=== PATIENT | male | born 1955 | race Caucasian/White ===

== ENCOUNTER 2018-05-02 17:49 | Inpatient (IN) | payer MEDICARE, OTHER ==
[~2018-05-02] VITALS: Ht 170.2 cm; Wt 52.2 kg
[2018-05-02] MEDS ORDERED: DOCU-141 PO (18:02)
[2018-05-02] MEDS ORDERED: HYDR-3641 PO (18:02)
[2018-05-02] MEDS ORDERED: FOLI1TAB16 PO (18:02)
[2018-05-02] MEDS ORDERED: MAGN400T6 PO (18:02)
[2018-05-02] MEDS ORDERED: ACET-2154 PO (18:02)
[2018-05-02] MEDS ORDERED: BISA10SU12 RC (18:02)
[2018-05-02] MEDS ORDERED: SENN-167 PO (18:02)
[2018-05-02] MEDS ORDERED: MAGN400O6 PO (18:02)
[2018-05-02] MEDS ORDERED: THIA100T13 PO (18:05)
[2018-05-02] MEDS ORDERED: MULT-213 PO (18:05)
[2018-05-02] MEDS ORDERED: CYAN100T3 PO (18:05)
[2018-05-02] MEDS ORDERED: MELA5TAB PO (18:05)
[2018-05-02 18:14] LABS: BASOPHILS # (AUTO) 0.1 K/uL (0.0-8.0); BASOPHILS % (AUTO) 0.5 % (0.0-2.0); EOSINOPHILS # (AUTO) 0.2 K/uL (0.0-0.7); EOSINOPHILS % (AUTO) 1.7 % (0.0-7.0); HEMATOCRIT 36.4 % (36.7-47.1); HEMOGLOBIN 12.5 g/dL (12.5-16.3); LYMPHOCYTES # (AUTO) 1.8 K/uL (20.0-40.0); LYMPHOCYTES % (AUTO) 18.5 % (20.5-51.5); MEAN CORPUSCULAR HEMOGLOBIN 30.6 uug (23.8-33.4); MEAN CORPUSCULAR HGB CONC 34 g/dL (32.5-36.3); MEAN CORPUSCULAR VOLUME 89.1 fL (73.0-96.2); MONOCYTES # (AUTO) 1.1 K/uL (2.0-10.0); NEUTROPHILS # (AUTO) 6.6 K/uL (1.8-8.9); NEUTROPHILS % (AUTO) 68.3 % (38.5-71.5); PLATELET COUNT (AUTO) 646 K/uL (152-348); RED BLOOD CELL COUNT(AUTO) 4.09 MIL/uL (4.06-5.63); WHITE BLOOD COUNT (AUTO) 9.7 K/uL (3.6-10.2)
[2018-05-02 18:25] LABS: CARBON DIOXIDE 28 mmol/L (21-32); CHLORIDE 92 mmol/L (98-107); CREATININE 0.5 mg/dL (0.6-1.3); GLUCOSE 101 mg/dL (74-106); POTASSIUM 3.9 mmol/L (3.5-5.1); UREA NITROGEN, BLOOD 9 mg/dL (7-18)
[2018-05-02 18:33] LABS: ETHANOL < 3 MG/DL (0-0)
[2018-05-02 18:37] LABS: ACETAMINOPHEN < 2.0 ug/mL (10-30); ALANINE AMINOTRANSFERASE 17 U/L (16-63); ALKALINE PHOSPHATASE 100 U/L (50-136); ASPARTATE AMINOTRANSFERASE 16 U/L (15-37); BILIRUBIN,DIRECT 0.1 mg/dL (0.0-0.2); BILIRUBIN,TOTAL 0.3 mg/dL (0.2-1.0); TOTAL PROTEIN, SERUM 7.8 g/dL (6.4-8.2)
[2018-05-02 20:55] LABS: *BILIRUBIN,URIN NEGATIVE (NEGATIVE); *BLOOD, URINE NEGATIVE (NEGATIVE); *CLARITY,URINE CLEAR (CLEAR); *COLOR,URINE YELLOW (YELLOW); *KETONES,URINE NEGATIVE (NEGATIVE); *PROTEIN,URINE NEGATIVE (NEGATIVE); *UROBILINOGEN,URINE 0.2 E.U./dl (NORMAL); LEUKOCYTE ESTERASE ,URINE NEGATIVE (NEGATIVE); NITRITE, URINE NEGATIVE (NEGATIVE); UGLUCOSE NEGATIVE (NEGATIVE)
[2018-05-02 21:00] VITALS: BP 142/78
[2018-05-02 21:05] LABS: *AMPHETAMINE, URINE NEGATIVE (NEGATIVE); *BARBITURATE, URINE NEGATIVE (NEGATIVE); *CANNABINOID, URINE NEGATIVE (NEGATIVE); *COCCAINE, URINE NEGATIVE (NEGATIVE); *OPIATE, URINE NEGATIVE (NEGATIVE); *PHENCYCLIDINE SCREEN,URINE NEGATIVE (NEGATIVE)
[2018-05-02] MEDS ORDERED: IV NORMAL SALINE 1000 ML BAG IV ONE (21:15)
[2018-05-02 21:20] LABS: WBC,URINE 0-3 /HPF (0-3)
[2018-05-02] MEDS ORDERED: MAGNESIUM HYDROXIDE 30 ML LIQUID UDC PO PRN ×2 (21:30→21:45)
[2018-05-02] MEDS ORDERED: HYDROCODONE/APAP 5-325MG TABLET PO PRN (21:30)
[2018-05-02] MEDS ORDERED: ONDANSETRON 4 MG/2 ML VIAL IV PRN (21:30)
[2018-05-02] MEDS ORDERED: TEMAZEPAM 15 MG CAPSULE PO PRN (21:30)
[2018-05-02] MEDS ORDERED: Z GUARD REMEDY PASTE 57 GM TUBE TOP PRN (21:30)
[2018-05-02] MEDS ORDERED: BISACODYL 10 MG SUPP.RECT RC PRN (21:45)
[2018-05-02] MEDS ORDERED: ACETAMINOPHEN 325 MG TABLET PO PRN (21:45)
[2018-05-02] MEDS ORDERED: SENNOSIDES 1 TABLET PO PRN (21:45)
[2018-05-02] MEDS ORDERED: MAG HYDROX/AL HYDROX/SIMETH 30 ML LIQUID UDC PO PRN (22:00)
[2018-05-02] MEDS ORDERED: IV NS 1000 ML 1,000 ML IV ONE (22:30)
[2018-05-03] MEDS ORDERED: TEMAZEPAM 15 MG CAPSULE PO PRN (03:45)
[2018-05-03 06:45] LABS: BASOPHILS # (AUTO) 0.1 K/uL (0.0-8.0); BASOPHILS % (AUTO) 0.9 % (0.0-2.0); EOSINOPHILS # (AUTO) 0.3 K/uL (0.0-0.7); EOSINOPHILS % (AUTO) 3.3 % (0.0-7.0); HEMATOCRIT 36.3 % (36.7-47.1); HEMOGLOBIN 12.9 g/dL (12.5-16.3); LYMPHOCYTES # (AUTO) 1.6 K/uL (20.0-40.0); MEAN CORPUSCULAR HEMOGLOBIN 31.5 uug (23.8-33.4); MEAN CORPUSCULAR HGB CONC 36 g/dL (32.5-36.3); MEAN CORPUSCULAR VOLUME 88.7 fL (73.0-96.2); MONOCYTES # (AUTO) 1.2 K/uL (2.0-10.0); MONOCYTES % (AUTO) 13.3 % (0.0-11.0); NEUTROPHILS # (AUTO) 5.6 K/uL (1.8-8.9); NEUTROPHILS % (AUTO) 64.5 % (38.5-71.5); PLATELET COUNT (AUTO) 643 K/uL (152-348); WHITE BLOOD COUNT (AUTO) 8.7 K/uL (3.6-10.2)
[2018-05-03 07:01] LABS: CARBON DIOXIDE 25 mmol/L (21-32); CHLORIDE 96 mmol/L (98-107); CHOLESTEROL 147 mg/dL (<200); CREATININE 0.5 mg/dL (0.6-1.3); GLUCOSE 94 mg/dL (74-106); HDL CHOLESTEROL 46 mg/dL (40-60); MAGNESIUM 1.3 mg/dL (1.8-2.4); PHOSPHOROUS 3.4 mg/dL (2.5-4.9); POTASSIUM 3.8 mmol/L (3.5-5.1); TRIGLYCERIDES 40 MG/DL (30-150); UREA NITROGEN, BLOOD 6 mg/dL (7-18)
[2018-05-03 07:30] VITALS: BP 113/62
[2018-05-03] MEDS: MULTIVIT, IRON, MIN NO. 8, FA TABLET PO SCH (08:57)
[2018-05-03] MEDS: FOLIC ACID 1 MG TABLET PO SCH (08:57)
[2018-05-03] MEDS: DOCUSATE SODIUM 100 MG CAPSULE PO SCH ×2 (08:57→16:28)
[2018-05-03] MEDS: THIAMINE HCL 100 MG TABLET PO SCH (08:57)
[2018-05-03] MEDS: MAGNESIUM OXIDE 400 MG TABLET PO SCH (08:57)
[2018-05-03] MEDS: CYANOCOBALAMIN 100 MCG TABLET PO SCH (08:57)
[2018-05-03] MEDS: OLANZAPINE ZYDIS 5 MG TAB.RAPDIS PO SCH (13:15)
[2018-05-03] MEDS ORDERED: MAGNESIUM OXIDE 400 MG TABLET PO ONE (13:30)
[2018-05-03 16:09] VITALS: BP 101/58
[2018-05-03] MEDS ORDERED: Medication Not On Formulary EA (Melatonin 5 MG) PO SCH (21:00)
[2018-05-03] MEDS: MELATONIN 3 MG TABLET PO SCH (21:00)
[2018-05-03 22:01] VITALS: BP 110/60
[2018-05-04 07:30] VITALS: BP 103/53
[2018-05-04 07:32] LABS: CARBON DIOXIDE 25 mmol/L (21-32); CHLORIDE 102 mmol/L (98-107); CREATININE 0.5 mg/dL (0.6-1.3); GLUCOSE 91 mg/dL (74-106); MAGNESIUM 1.8 mg/dL (1.8-2.4); POTASSIUM 3.8 mmol/L (3.5-5.1); UREA NITROGEN, BLOOD 10 mg/dL (7-18)
[2018-05-04] MEDS: THIAMINE HCL 100 MG TABLET PO SCH (08:52)
[2018-05-04] MEDS: CYANOCOBALAMIN 100 MCG TABLET PO SCH (08:52)
[2018-05-04] MEDS: DOCUSATE SODIUM 100 MG CAPSULE PO SCH ×2 (08:52→16:51)
[2018-05-04] MEDS: MULTIVIT, IRON, MIN NO. 8, FA TABLET PO SCH (08:53)
[2018-05-04] MEDS: FOLIC ACID 1 MG TABLET PO SCH (08:53)
[2018-05-04] MEDS: OLANZAPINE ZYDIS 5 MG TAB.RAPDIS PO SCH (08:53)
[2018-05-04] MEDS: MAGNESIUM OXIDE 400 MG TABLET PO SCH (08:53)
[2018-05-04] MEDS: CEPHALEXIN MONOHYDRATE 500 MG CAPSULE PO SCH ×2 (14:11→21:09)
[2018-05-04 15:57] VITALS: BP 91/48
[2018-05-04 20:21] VITALS: BP 119/59
[2018-05-04] MEDS: MELATONIN 3 MG TABLET PO SCH (20:26)
[2018-05-05] MEDS: CEPHALEXIN MONOHYDRATE 500 MG CAPSULE PO SCH ×3 (06:27→21:27)
[2018-05-05 06:43] LABS: CARBON DIOXIDE 25 mmol/L (21-32); CHLORIDE 99 mmol/L (98-107); CREATININE 0.5 mg/dL (0.6-1.3); GLUCOSE 101 mg/dL (74-106); MAGNESIUM 1.5 mg/dL (1.8-2.4); POTASSIUM 3.8 mmol/L (3.5-5.1); UREA NITROGEN, BLOOD 12 mg/dL (7-18)
[2018-05-05 07:30] VITALS: BP 111/67
[2018-05-05] MEDS: FOLIC ACID 1 MG TABLET PO SCH (09:12)
[2018-05-05] MEDS: CYANOCOBALAMIN 100 MCG TABLET PO SCH (09:12)
[2018-05-05] MEDS: THIAMINE HCL 100 MG TABLET PO SCH (09:12)
[2018-05-05] MEDS: DOCUSATE SODIUM 100 MG CAPSULE PO SCH ×2 (09:12→16:54)
[2018-05-05] MEDS: MULTIVIT, IRON, MIN NO. 8, FA TABLET PO SCH (09:12)
[2018-05-05] MEDS: MAGNESIUM OXIDE 400 MG TABLET PO SCH (09:12)
[2018-05-05] MEDS: OLANZAPINE ZYDIS 5 MG TAB.RAPDIS PO SCH (09:12)
[2018-05-05] MEDS ORDERED: MAGNESIUM OXIDE 400 MG TABLET PO ONE (11:15)
[2018-05-05 15:41] VITALS: BP 119/71
[2018-05-05] MEDS: SULFAMETH/TRIMETH 800/160 MG TABLET PO SCH (20:26)
[2018-05-05] MEDS: MELATONIN 3 MG TABLET PO SCH (20:27)
[2018-05-05 21:41] VITALS: BP 117/49
[2018-05-06] MEDS: CLONAZEPAM 0.5 MG TABLET PO PRN ×2 (02:26→13:40)
[2018-05-06] MEDS: ACETAMINOPHEN 325 MG TABLET PO PRN ×2 (02:26→20:22)
[2018-05-06] MEDS: CEPHALEXIN MONOHYDRATE 500 MG CAPSULE PO SCH ×3 (05:26→21:20)
[2018-05-06 08:00] VITALS: BP 109/56
[2018-05-06] MEDS: MULTIVIT, IRON, MIN NO. 8, FA TABLET PO SCH (08:24)
[2018-05-06] MEDS: DOCUSATE SODIUM 100 MG CAPSULE PO SCH ×2 (08:24→16:50)
[2018-05-06] MEDS: FOLIC ACID 1 MG TABLET PO SCH (08:24)
[2018-05-06] MEDS: MAGNESIUM OXIDE 400 MG TABLET PO SCH (08:24)
[2018-05-06] MEDS: CYANOCOBALAMIN 100 MCG TABLET PO SCH (08:24)
[2018-05-06] MEDS: OLANZAPINE ZYDIS 5 MG TAB.RAPDIS PO SCH (08:28)
[2018-05-06] MEDS: THIAMINE HCL 100 MG TABLET PO SCH (08:28)
[2018-05-06] MEDS: SULFAMETH/TRIMETH 800/160 MG TABLET PO SCH ×2 (08:28→20:21)
[2018-05-06] MEDS ORDERED: MAGNESIUM OXIDE 250 MG TABLET PO SCH (09:00)
[2018-05-06 15:12] VITALS: BP 122/50
[2018-05-06 20:50] VITALS: BP 136/65
[2018-05-06] MEDS: MELATONIN 3 MG TABLET PO SCH (21:20)
[2018-05-07] MEDS: CEPHALEXIN MONOHYDRATE 500 MG CAPSULE PO SCH ×3 (06:48→21:00)
[2018-05-07 07:30] VITALS: BP_SYST 114; BP_SYST 116; BP_DIAS 61; BP_DIAS 65
[2018-05-07 07:38] LABS: BASOPHILS # (AUTO) 0.1 K/uL (0.0-8.0); BASOPHILS % (AUTO) 1.1 % (0.0-2.0); EOSINOPHILS # (AUTO) 0.3 K/uL (0.0-0.7); EOSINOPHILS % (AUTO) 2.2 % (0.0-7.0); HEMATOCRIT 34.8 % (36.7-47.1); LYMPHOCYTES # (AUTO) 1.7 K/uL (20.0-40.0); MEAN CORPUSCULAR HEMOGLOBIN 30.5 uug (23.8-33.4); MEAN CORPUSCULAR HGB CONC 34 g/dL (32.5-36.3); MEAN CORPUSCULAR VOLUME 88.9 fL (73.0-96.2); MONOCYTES # (AUTO) 1.5 K/uL (2.0-10.0); MONOCYTES % (AUTO) 12.1 % (0.0-11.0); NEUTROPHILS # (AUTO) 8.8 K/uL (1.8-8.9); NEUTROPHILS % (AUTO) 70.6 % (38.5-71.5); PLATELET COUNT (AUTO) 668 K/uL (152-348); RED BLOOD CELL COUNT(AUTO) 3.91 MIL/uL (4.06-5.63); WHITE BLOOD COUNT (AUTO) 12.5 K/uL (3.6-10.2)
[2018-05-07 07:49] LABS: CARBON DIOXIDE 25 mmol/L (21-32); CHLORIDE 99 mmol/L (98-107); CREATININE 0.6 mg/dL (0.6-1.3); GLUCOSE 102 mg/dL (74-106); POTASSIUM 4.2 mmol/L (3.5-5.1); UREA NITROGEN, BLOOD 13 mg/dL (7-18)
[2018-05-07] MEDS: MULTIVIT, IRON, MIN NO. 8, FA TABLET PO SCH ×2 (08:44→09:00)
[2018-05-07] MEDS: FOLIC ACID 1 MG TABLET PO SCH ×2 (08:44→09:00)
[2018-05-07] MEDS: SULFAMETH/TRIMETH 800/160 MG TABLET PO SCH ×2 (08:44→21:00)
[2018-05-07] MEDS: OLANZAPINE ZYDIS 5 MG TAB.RAPDIS PO SCH (08:44)
[2018-05-07] MEDS: CYANOCOBALAMIN 100 MCG TABLET PO SCH ×2 (08:44→09:00)
[2018-05-07] MEDS: THIAMINE HCL 100 MG TABLET PO SCH (08:44)
[2018-05-07] MEDS: DOCUSATE SODIUM 100 MG CAPSULE PO SCH ×2 (08:44→16:33)
[2018-05-07] MEDS: MAGNESIUM OXIDE 400 MG TABLET PO SCH ×2 (08:44→09:00)
[2018-05-07 16:41] VITALS: BP 125/63
[2018-05-07 17:04] LABS: *BILIRUBIN,URIN NEGATIVE (NEGATIVE); *BLOOD, URINE NEGATIVE (NEGATIVE); *CLARITY,URINE CLEAR (CLEAR); *COLOR,URINE YELLOW (YELLOW); *KETONES,URINE NEGATIVE (NEGATIVE); *PROTEIN,URINE NEGATIVE (NEGATIVE); LEUKOCYTE ESTERASE ,URINE NEGATIVE (NEGATIVE); NITRITE, URINE NEGATIVE (NEGATIVE); PH,URINE 8.5 (5.0-8.0); UGLUCOSE NEGATIVE (NEGATIVE)
[2018-05-07 17:15] LABS: *CREATININE,URINE 83.8 mg/dL (30-125); *URINE TOTAL PROTEIN RANDOM 21.3 mg/dL (<150/24HR)
[2018-05-07 17:52] LABS: RBC,URINE 0-3 /HPF (0-3)
[2018-05-07 17:53] LABS: BACTERIA,URINE NONE SEEN /HPF (NONE SEEN); SQUAMOUS EPITHELIAL CELL,UR NONE SEEN /HPF (NONE SEEN); WBC,URINE 0-3 /HPF (0-3)
[2018-05-07 20:00] VITALS: BP 123/60
[2018-05-07] MEDS: MELATONIN 3 MG TABLET PO SCH (21:00)
[2018-05-08] MEDS: CEPHALEXIN MONOHYDRATE 500 MG CAPSULE PO SCH ×3 (06:28→21:17)
[2018-05-08 07:30] VITALS: BP 116/74
[2018-05-08] MEDS: OLANZAPINE ZYDIS 5 MG TAB.RAPDIS PO SCH (09:09)
[2018-05-08] MEDS: DOCUSATE SODIUM 100 MG CAPSULE PO SCH ×2 (09:09→16:32)
[2018-05-08] MEDS: MAGNESIUM OXIDE 400 MG TABLET PO SCH (09:11)
[2018-05-08] MEDS: THIAMINE HCL 100 MG TABLET PO SCH (09:11)
[2018-05-08] MEDS: FOLIC ACID 1 MG TABLET PO SCH (09:11)
[2018-05-08] MEDS: MULTIVIT, IRON, MIN NO. 8, FA TABLET PO SCH (09:11)
[2018-05-08] MEDS: SULFAMETH/TRIMETH 800/160 MG TABLET PO SCH ×2 (09:11→21:17)
[2018-05-08] MEDS: CYANOCOBALAMIN 100 MCG TABLET PO SCH (09:11)
[2018-05-08 17:26] VITALS: BP 113/65
[2018-05-08 20:42] VITALS: BP 117/59
[2018-05-08] MEDS: MELATONIN 3 MG TABLET PO SCH (21:17)
[2018-05-09] MEDS: CEPHALEXIN MONOHYDRATE 500 MG CAPSULE PO SCH ×2 (06:35→14:00)
[2018-05-09 07:30] VITALS: BP 100/64
[2018-05-09] MEDS: FOLIC ACID 1 MG TABLET PO SCH (09:39)
[2018-05-09] MEDS: DOCUSATE SODIUM 100 MG CAPSULE PO SCH ×2 (09:39→16:41)
[2018-05-09] MEDS: MAGNESIUM OXIDE 400 MG TABLET PO SCH (09:39)
[2018-05-09] MEDS: SULFAMETH/TRIMETH 800/160 MG TABLET PO SCH ×2 (09:39→20:47)
[2018-05-09] MEDS: THIAMINE HCL 100 MG TABLET PO SCH (09:39)
[2018-05-09] MEDS: OLANZAPINE ZYDIS 5 MG TAB.RAPDIS PO SCH (09:39)
[2018-05-09] MEDS: CYANOCOBALAMIN 100 MCG TABLET PO SCH (09:39)
[2018-05-09] MEDS: MULTIVIT, IRON, MIN NO. 8, FA TABLET PO SCH (09:39)
[2018-05-09] MEDS: MELATONIN 3 MG TABLET PO SCH (20:47)
[2018-05-10 07:30] VITALS: BP 100/60
[2018-05-10] MEDS ORDERED: SWABABLE VALVE TRANSFER SET EA MC ONE (08:07)
[2018-05-10] MEDS ORDERED: IV NORMAL SALINE 250 ML IV ONE (08:08)
[2018-05-10] MEDS ORDERED: IOHEXOL 300MG/ML 100 ML INFUS..BTL ONE (08:08)
[2018-05-10] MEDS: FOLIC ACID 1 MG TABLET PO SCH (09:00)
[2018-05-10] MEDS: CYANOCOBALAMIN 100 MCG TABLET PO SCH (09:00)
[2018-05-10] MEDS: OLANZAPINE ZYDIS 5 MG TAB.RAPDIS PO SCH (09:00)
[2018-05-10] MEDS: THIAMINE HCL 100 MG TABLET PO SCH (09:00)
[2018-05-10] MEDS: DOCUSATE SODIUM 100 MG CAPSULE PO SCH ×2 (09:00→17:32)
[2018-05-10] MEDS: MAGNESIUM OXIDE 400 MG TABLET PO SCH (09:00)
[2018-05-10] MEDS: SULFAMETH/TRIMETH 800/160 MG TABLET PO SCH (09:00)
[2018-05-10] MEDS: MULTIVIT, IRON, MIN NO. 8, FA TABLET PO SCH (09:00)
[2018-05-10 14:03] LABS: BASOPHILS # (AUTO) 0.1 K/uL (0.0-8.0); BASOPHILS % (AUTO) 0.9 % (0.0-2.0); EOSINOPHILS # (AUTO) 0.2 K/uL (0.0-0.7); EOSINOPHILS % (AUTO) 2.4 % (0.0-7.0); HEMATOCRIT 34.1 % (36.7-47.1); HEMOGLOBIN 12.1 g/dL (12.5-16.3); LYMPHOCYTES # (AUTO) 1.5 K/uL (20.0-40.0); LYMPHOCYTES % (AUTO) 17.1 % (20.5-51.5); MEAN CORPUSCULAR HEMOGLOBIN 31.2 uug (23.8-33.4); MEAN CORPUSCULAR HGB CONC 36 g/dL (32.5-36.3); MEAN CORPUSCULAR VOLUME 87.8 fL (73.0-96.2); MONOCYTES # (AUTO) 1.4 K/uL (2.0-10.0); MONOCYTES % (AUTO) 16.4 % (0.0-11.0); NEUTROPHILS # (AUTO) 5.4 K/uL (1.8-8.9); NEUTROPHILS % (AUTO) 63.2 % (38.5-71.5); PLATELET COUNT (AUTO) 754 K/uL (152-348); RED BLOOD CELL COUNT(AUTO) 3.89 MIL/uL (4.06-5.63); WHITE BLOOD COUNT (AUTO) 8.6 K/uL (3.6-10.2)
[2018-05-10 15:50] VITALS: BP 99/54
[2018-05-10 20:39] VITALS: BP 101/61
[2018-05-10] MEDS: MELATONIN 3 MG TABLET PO SCH (20:46)
[2018-05-10] MEDS ORDERED: ZINC113P2 TP (22:44)
[2018-05-10] MEDS ORDERED: SENN-18 PO (22:44)
[2018-05-10] MEDS ORDERED: OLAN7.5T3 PO (22:44)
[2018-05-10] MEDS ORDERED: THIA100T74 PO (22:44)
[2018-05-14] MEDS ORDERED: DIVA250T4 PO (09:11)
[2018-05-14] MEDS ORDERED: RIFA300C2 PO (09:11)
[2018-05-14] MEDS ORDERED: ASCO500T9 PO (09:11)
[2018-05-14] MEDS ORDERED: OLAN2.5T3 PO (09:11)
[2018-05-14] MEDS ORDERED: ZINC220C8 PO (09:11)
== END 2018-05-10 21:56 | disposition short-term general hospital (02) | DRG 885 ==
LOC: ER 17:53 → GPS 20:57
PROVIDERS: ADMIT Psychiatry & Neurology Psychiatry; ATTEND Nurse Practitioner Acute Care
DX: F23 Brief psychotic disorder (principal); M86.8X8 Other osteomyelitis, other site; F03.91 Unspecified dementia, unspecified severity, with behavioral disturbance; E87.1 Hypo-osmolality and hyponatremia; E44.1 Mild protein-calorie malnutrition; Z68.1 Body mass index [BMI] 19.9 or less, adult; E83.42 Hypomagnesemia; Z91.83 Wandering in diseases classified elsewhere; R73.03 Prediabetes; K40.90 Unilateral inguinal hernia, without obstruction or gangrene, not specified as recurrent; S71.002A Unspecified open wound, left hip, initial encounter; B95.62 Methicillin resistant Staphylococcus aureus infection as the cause of diseases classified elsewhere; X58.XXXA Exposure to other specified factors, initial encounter; Y92.099 Unspecified place in other non-institutional residence as the place of occurrence of the external cause; Z79.899 Other long term (current) drug therapy; Z91.19 Patient's noncompliance with other medical treatment and regimen; E88.09 Other disorders of plasma-protein metabolism, not elsewhere classified
CPT/HCPCS: 36415; 70030-TC; 71045; 72193; 80307; 83735; 84100; 84156; 84300; 85025; 87070; 93005; 97116; 97530; A4663; G0480; G0480-TC; J2405; J7030; J7050; Q9967

== ENCOUNTER 2018-05-10 22:16 | Inpatient (IN) | payer MEDICARE, OTHER ==
[~2018-05-10] VITALS: Ht 170.2 cm; Wt 50.3 kg
--- NOTE | 2018-05-10 21:30 | NUR ---
ADMITTED A 62 YEARS OLD MALE FROM [facility] WITH DIAGNOSIS OF OSTEOMYELITIS. PATIENT AAOX2 ONLY. IN NO ACUTE DISTRESS. DENIES ANY PAIN OR SOB AT THIS TIME. NO BEHAVIORAL ISSUES NOTED AT THIS TIME. ROUTINE ADMISSION CARE DONE. PLAN OF CARE INITIATED. SAFETY MEASURE INITIATED AND CALL BEEL WITHIN REACH. 1:1 SITTER AT BEDSIDE. ISOLATION PRECAUTION INITIATED.
[~2018-05-10 22:16] MED LIST: ACET-2154 PO; BISA10SU12 RC; CYAN100T3 PO; DOCU-141 PO; FOLI1TAB16 PO; HYDR-3641 PO; MAGN400O6 PO; MAGN400T6 PO; MELA5TAB PO; MULT-213 PO; SENN-167 PO; THIA100T13 PO
[2018-05-10 22:31] VITALS: BP 97/53
[2018-05-10] MEDS ORDERED: SENN-18 PO (22:44)
[2018-05-10] MEDS ORDERED: OLAN7.5T3 PO (22:44)
[2018-05-10] MEDS ORDERED: THIA100T74 PO (22:44)
[2018-05-10] MEDS ORDERED: ZINC113P2 TP (22:44)
[2018-05-10] MEDS ORDERED: SENNOSIDES 1 TABLET PO PRN (23:00)
[2018-05-10] MEDS ORDERED: BISACODYL 10 MG SUPP.RECT RC PRN (23:00)
[2018-05-10] MEDS ORDERED: Z GUARD REMEDY PASTE 57 GM TUBE TOP PRN (23:15)
[2018-05-10] MEDS ORDERED: MAGNESIUM HYDROXIDE 30 ML LIQUID UDC PO PRN (23:15)
[2018-05-10] MEDS ORDERED: ACETAMINOPHEN 325 MG TABLET PO PRN (23:15)
[2018-05-10] MEDS ORDERED: ONDANSETRON 4 MG/2 ML VIAL IV PRN (23:15)
[2018-05-10] MEDS ORDERED: VANCOMYCIN 1 GM/200 ML IV ONE (23:45)
[2018-05-10] MEDS ORDERED: ENOXAPARIN SODIUM 40 MG/0.4 ML DISP.SYRIN SQ ONE (23:45)
--- NOTE | 2018-05-11 | NUR ---
PATIENT WITH ORDER FOR VANCOMYCIN IV. INFORMED NURSING GROUP CONTRACT ANALYST OF NEW ORDER AND WILL BRING MEDICATION TO THIS NURSE.
[2018-05-11] MEDS ORDERED: VANCOMYCIN IV 200 ML ONE (01:14)
[2018-05-11 04:00] VITALS: BP 117/48
[2018-05-11 06:31] LABS: BASOPHILS # (AUTO) 0.1 K/uL (0.0-8.0); BASOPHILS % (AUTO) 0.9 % (0.0-2.0); EOSINOPHILS # (AUTO) 0.3 K/uL (0.0-0.7); HEMOGLOBIN 11.9 g/dL (12.5-16.3); LYMPHOCYTES # (AUTO) 1.4 K/uL (20.0-40.0); LYMPHOCYTES % (AUTO) 16.3 % (20.5-51.5); MEAN CORPUSCULAR HEMOGLOBIN 30.9 uug (23.8-33.4); MEAN CORPUSCULAR HGB CONC 35 g/dL (32.5-36.3); MONOCYTES # (AUTO) 1.6 K/uL (2.0-10.0); MONOCYTES % (AUTO) 18.4 % (0.0-11.0); NEUTROPHILS # (AUTO) 5.2 K/uL (1.8-8.9); NEUTROPHILS % (AUTO) 61.4 % (38.5-71.5); PLATELET COUNT (AUTO) 708 K/uL (152-348); RED BLOOD CELL COUNT(AUTO) 3.87 MIL/uL (4.06-5.63); WHITE BLOOD COUNT (AUTO) 8.4 K/uL (3.6-10.2)
--- NOTE | 2018-05-11 06:37 | NUR ---
PATIENT AAOX2 ONLY. LEGALLY BLIND. IN NO ACUTE DISTRESS. DENIES ANY PAIN OR SOB. EPISODE OF VERBAL ABUSE, CURSING, BUT EASILY REDIRECTED. IV SITE ON LEFT HAND INTACT AND PATENT. NO ADVERSE REACTION NOTED FROM IV ABX. NEEDS ATTENDED TO AND MET. SAFETY MEASURE MAINTAINED AND CALL FERNANDEZ WITHIN REACH. 1:1 SITTER AT BEDSIDE. ISOLATION PRECAUTION OBSERVED.
[2018-05-11 06:41] LABS: CREATININE 0.7 mg/dL (0.6-1.3); MAGNESIUM 1.7 mg/dL (1.8-2.4); PHOSPHOROUS 4.5 mg/dL (2.5-4.9); POTASSIUM 3.9 mmol/L (3.5-5.1)
[2018-05-11 07:38] VITALS: BP 107/52
[2018-05-11] MEDS ORDERED: VANCOMYCIN IV 750 MG in IV DEXTROSE 5% 250 ML IV SCH (08:00)
[2018-05-11 08:22] LABS: BASOPHILS % (MANUAL) 1 % (0-2); EOSINOPHILS % (MANUAL) 2 % (0-8); LYMPHOCYTES % (MANUAL) 16 % (20-40); MONOCYTES % (MANUAL) 18 % (2-10); NEUTROPHILS % (MANUAL) 63 % (42-75)
[2018-05-11] MEDS: MAGNESIUM OXIDE 400 MG TABLET PO SCH ×2 (08:58→09:00)
[2018-05-11] MEDS: FOLIC ACID 1 MG TABLET PO SCH ×2 (08:58→09:00)
[2018-05-11] MEDS: CYANOCOBALAMIN 100 MCG TABLET PO SCH ×2 (08:58→09:00)
[2018-05-11] MEDS: DOCUSATE SODIUM 100 MG CAPSULE PO SCH ×4 (08:58→17:00)
[2018-05-11] MEDS: THIAMINE HCL 100 MG TABLET PO SCH ×2 (08:58→09:00)
[2018-05-11] MEDS: OLANZAPINE 2.5 MG TABLET PO SCH (08:59)
[2018-05-11] MEDS: hydrOXYzine HCL 10 MG TABLET PO SCH ×2 (09:00→17:00)
[2018-05-11] MEDS: HYDROCODONE/APAP 5-325MG TABLET PO PRN ×2 (10:15→15:17)
[2018-05-11] MEDS: RIFAMPIN 300 MG CAPSULE PO SCH ×2 (11:45→20:50)
[2018-05-11 11:54] VITALS: BP 132/87
[2018-05-11] MEDS: VANCOMYCIN IV 750 MG in IV DEXTROSE 5% 250 ML IV SCH (13:00)
--- NOTE | 2018-05-11 14:56 | NUR ---
Clinical Pharmacy Note: Vancomycin Pharmacy to Dose Subjective: To start vancomycin in this 62 y/o male for indication of osteomyelitis Objective: weight 50 kg height 170cm BUN 17 Scr 0.7 Wbc 8.4 temp 98.3 Pt received 1gm vanco 05/11@0118 Assessment/Plan Will start vancomycin 750mg q12hr for estimated trough of 17.2, first dosetoday at 1300. Will order trough before 4th scheduled dose (not ordered yet). Will dose per level if renal function were to become unstable. Will follow
--- NOTE | 2018-05-11 15:15 | NUR ---
NEW ORDERS: VIT-C, ZINC & MVI WITH/MINERALS TO PROMOTE HEALING
[2018-05-11 15:27] VITALS: BP 122/75
--- NOTE | 2018-05-11 19:40 | NUR ---
PATIENT LYING ON BED,COOPERATIVE AT PRESENT. NO BEHAVIORAL PROBLEMS NOTED.1:1SITTER AT THE BED SIDE. L HIP WOUND DRESSING CLEAN AND INTACT .WILL CONTINUE TO MONITOR.
[2018-05-11 20:00] VITALS: BP 153/61
[2018-05-11] MEDS ORDERED: ENOXAPARIN SODIUM 40 MG/0.4 ML DISP.SYRIN SQ SCH (21:00)
--- NOTE | 2018-05-12 01:00 | NUR ---
IV NOTED INFILTRATED. D/C THE IV SITE AND STARTED A NEW 22 G LFA.
[2018-05-12] MEDS: VANCOMYCIN IV 750 MG in IV DEXTROSE 5% 250 ML IV SCH ×2 (01:10→12:31)
--- NOTE | 2018-05-12 04:00 | NUR ---
PATIENT PULLED OUT THE IV.HE IS RESTLESS AND VERBALLY ABUSIVE. HE STATED HE DOES NOT LIKE IT. HE DOES NOT WANT TO START ANOTHER ONE . WILL TRY LATER.1: 1 SITTER AT THE BED SIDE.
[2018-05-12 05:29] VITALS: BP 111/90
--- NOTE | 2018-05-12 06:30 | NUR ---
PATIENT AWAKE ON W/C AND TRIED TO WHEEL OUT SIDE THE ROOM . EXPLAINED THE PATIENT TO STAY IN THE ROOM. PATIENT NON COMPLIANT WITH INSTRUCTIONS.REFUSED TO START NEW IV.REDIRECTED THE PATIENT AND TRIED TO ORIENT. 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
[2018-05-12 06:54] LABS: BASOPHILS # (AUTO) 0.1 K/uL (0.0-8.0); EOSINOPHILS # (AUTO) 0.1 K/uL (0.0-0.7); EOSINOPHILS % (AUTO) 1.7 % (0.0-7.0); HEMATOCRIT 37.5 % (36.7-47.1); LYMPHOCYTES # (AUTO) 1.5 K/uL (20.0-40.0); LYMPHOCYTES % (AUTO) 16.9 % (20.5-51.5); MEAN CORPUSCULAR HGB CONC 35 g/dL (32.5-36.3); MEAN CORPUSCULAR VOLUME 89.4 fL (73.0-96.2); MONOCYTES # (AUTO) 1.3 K/uL (2.0-10.0); MONOCYTES % (AUTO) 14.6 % (0.0-11.0); NEUTROPHILS # (AUTO) 5.7 K/uL (1.8-8.9); NEUTROPHILS % (AUTO) 65.8 % (38.5-71.5); PLATELET COUNT (AUTO) 792 K/uL (152-348); RED BLOOD CELL COUNT(AUTO) 4.19 MIL/uL (4.06-5.63); WHITE BLOOD COUNT (AUTO) 8.6 K/uL (3.6-10.2)
[2018-05-12 07:14] LABS: ALANINE AMINOTRANSFERASE 24 U/L (16-63); ALKALINE PHOSPHATASE 112 U/L (50-136); ASPARTATE AMINOTRANSFERASE 20 U/L (15-37); BILIRUBIN,DIRECT 0.2 mg/dL (0.0-0.2); BILIRUBIN,TOTAL 0.8 mg/dL (0.2-1.0); CARBON DIOXIDE 26 mmol/L (21-32); CHLORIDE 98 mmol/L (98-107); CREATININE 0.5 mg/dL (0.6-1.3); GLUCOSE 98 mg/dL (74-106); POTASSIUM 4.2 mmol/L (3.5-5.1); TOTAL PROTEIN, SERUM 8.8 g/dL (6.4-8.2); UREA NITROGEN, BLOOD 13 mg/dL (7-18)
[2018-05-12 08:00] VITALS: BP 132/63
--- NOTE | 2018-05-12 08:30 | NUR ---
PATIENT IS AWAKE ALERT AND AWARE SOMEWHAT FORGETFUL NEEDS FREQUENT REORIENTATION SEEMS TO FORGET THINGS ON THE W/CHAIR AT THIS TIME ASSISTED BACK INTO THE BED AND MADE COMFORTABLE PATIENT HAS A ONE ONE SITTER FOR SAFETY CONTINUES TO REFUSE TO HAVE HIS HEPLOCK REINSERTED HE HAS NOTHING DUE IV AT THIS TIME WILL CONTINUE TO ENCOURAGE ALLOWING REINSERTION ON THE HEPLOCK BEFORE THE NEXT DUE DOSE OF ANTIBIOTICS. DENIES PAIN OR DISCOMFORTS AT THIS TIME AND WILL CONTINUE TO OBSERVE AND PROVIDE SAFE AND THERAPEUTIC ENVIRONMENT.
[2018-05-12] MEDS: CYANOCOBALAMIN 100 MCG TABLET PO SCH (08:31)
[2018-05-12] MEDS: ASCORBIC ACID 500 MG TABLET PO SCH (08:31)
[2018-05-12] MEDS: FOLIC ACID 1 MG TABLET PO SCH (08:31)
[2018-05-12] MEDS: THIAMINE HCL 100 MG TABLET PO SCH (08:31)
[2018-05-12] MEDS: MAGNESIUM OXIDE 400 MG TABLET PO SCH (08:31)
[2018-05-12] MEDS: MULTIVIT, IRON, MIN NO. 8, FA TABLET PO SCH (08:31)
[2018-05-12] MEDS: ZINC SULFATE 220 MG CAPSULE PO SCH (08:31)
[2018-05-12] MEDS: OLANZAPINE 2.5 MG TABLET PO SCH ×3 (08:31→16:23)
[2018-05-12] MEDS: DOCUSATE SODIUM 100 MG CAPSULE PO SCH ×2 (08:31→16:23)
[2018-05-12] MEDS: RIFAMPIN 300 MG CAPSULE PO SCH ×2 (08:32→20:13)
[2018-05-12] MEDS: hydrOXYzine HCL 10 MG TABLET PO SCH ×2 (08:32→16:23)
--- NOTE | 2018-05-12 12:00 | NUR ---
PATIENT SEEN AND EXAMINED BY TINO TIERNEY WITH ORDER TO INSERT PICC LINE PATIENT HAD PULLED OUT HIS HEPLOCK 2 TIMES ON PREVIOUS SHIFT STATED THAT THE PATIENT WILL NEED SWATCHER IV ANTIBIOTICS SO THE PLAN IS THAT I WILL INSERT A PERIPHERAL LINE IN HIM AND WE WILL INSERT PICC LINE ON OR A DAY BEFORE HE IS DISCHARGED BECAUSE HE IS PRONE TO PULLING OUT THE PICC LINE.
--- NOTE | 2018-05-12 13:30 | NUR ---
DR LUNDBERG HERE TO SEE PATIENT AWARE THAT PATIENT IS REFUSING MEDS AT TIMES PULLING OUT IV LINES WITH NEW ORDERS AND NOTED.
--- NOTE | 2018-05-12 14:46 | NUR ---
Clinical Pharmacy Note: Vancomycin Pharmacy to Dose Subjective: To continue vancomycin in this 62 y/o male for indication of osteomyelitis Objective: weight 50 kg height 170cm BUN 13 Scr 0.5 Wbc 8.6 temp 97.8 trough pending tomorrow @ 0030 Assessment/Plan Will continue vancomycin 750mg q12hr for estimated trough of 17.2, third dose today at 1300. Trough ordered before 4th scheduled dose (due tomorrow early am at 0030). RN endorsed to hold if tr >20. Will check in am and adjust as needed
[2018-05-12 15:59] VITALS: BP 115/65
--- NOTE | 2018-05-12 17:29 | NUR ---
PATIENT IS RESTING EATING DINNER BUT HAD A SNACK ABOUT AN HOUR AGO WAS SEEN BY DR NICHOLS WITH NO NEW ORDERS AT THIS TIME TOLERATED HIS IV ANTIBIOTICS ORDERED WITH NO ADVERSE OR ALLERGIC REACTIONS AT THIS TIME.WILL CONTINUE TO OBSERVE.
--- NOTE | 2018-05-12 19:55 | NUR ---
PATIENT SLEEPING ON BED AT THIS TIME. CONTINUE ON CONTACT ISOLATION FOR MRSA OF THE WOUND. DRESSING CLEAN AND INTACT. LEFT FORE ARM IV DRESSING ING INTACT. WILL CONTINUE TO MONITOR.
--- NOTE | 2018-05-12 19:59 | NUR ---
1: 1 SITTER AT THE BED SIDE.
[2018-05-12 21:00] VITALS: BP 123/84
--- NOTE | 2018-05-13 00:30 | NUR ---
SUPERINTENDENT SALES WENT IN THE ROOM FOR LAB DRAW [facility] TROUGH FOR THE PATIENT ORDERED. PATIENT WAS AGITATED AND VERBALLY ABUSIVE; HE REFUSED FOR LAB DRAW. NOTIFIED . HE STATED TO DRAW THE BLOOD IN THE MORNING AND TO HOLD VANCO FOR NOW VANCO NOT ADMINISTERED FOR 1 AM
[2018-05-13] MEDS: VANCOMYCIN IV 750 MG in IV DEXTROSE 5% 250 ML IV SCH ×3 (01:00→20:43)
--- NOTE | 2018-05-13 06:00 | NUR ---
PATIENT SLEEPING ON BED, REFUSED LAB DRAW.
--- NOTE | 2018-05-13 06:30 | NUR ---
PATIENT REFUSED TO TAKE VITAL SIGNS
--- NOTE | 2018-05-13 07:11 | NUR ---
PATIENT AWAKE ON BED, NO BEHAVIORAL PROBLEMS NOTED. DRESSING ON LEFT HIP CLEAN AND INTACT. CONTINUING ON CONTACT ISOLATION ORDERED. 1:1 SITTER AT THE BED SIDE.
[2018-05-13 08:00] VITALS: BP 119/57
[2018-05-13] MEDS: ASCORBIC ACID 500 MG TABLET PO SCH (08:16)
[2018-05-13] MEDS: FOLIC ACID 1 MG TABLET PO SCH (08:17)
[2018-05-13] MEDS: MULTIVIT, IRON, MIN NO. 8, FA TABLET PO SCH (08:17)
[2018-05-13] MEDS: MAGNESIUM OXIDE 400 MG TABLET PO SCH (08:17)
[2018-05-13] MEDS: CYANOCOBALAMIN 100 MCG TABLET PO SCH (08:17)
[2018-05-13] MEDS: OLANZAPINE 2.5 MG TABLET PO SCH ×3 (08:18→16:22)
[2018-05-13] MEDS: THIAMINE HCL 100 MG TABLET PO SCH (08:18)
[2018-05-13] MEDS: ZINC SULFATE 220 MG CAPSULE PO SCH (08:18)
[2018-05-13] MEDS: DOCUSATE SODIUM 100 MG CAPSULE PO SCH ×2 (08:18→16:22)
[2018-05-13] MEDS: RIFAMPIN 300 MG CAPSULE PO SCH ×2 (08:19→20:43)
[2018-05-13] MEDS: hydrOXYzine HCL 10 MG TABLET PO SCH ×2 (08:43→16:22)
--- NOTE | 2018-05-13 09:19 | NUR ---
Clinical Pharmacy Note: Vancomycin Pharmacy to Dose Subjective: To continue vancomycin in this 62 y/o male for indication of osteomyelitis Objective: weight 50 kg height 170cm BUN 13 (05/12) Scr 0.5 (05/12) Wbc 8.6 (05/12) temp 99 trough pending tomorrow @ 0030- Patient refused lab draw Assessment/Plan Patient refused lab draw on 05/13 at 0030. RN held 1am dose. Will reschedule same dose of vancomycin 750mg IVPB q12hr for today again. 1st dose due today 0900. Trough ordered before 4th scheduled dose (not yet ordered- will try to schedule trough in am. If patient continues to refuse, will inform MD). Will follow.
--- NOTE | 2018-05-13 09:30 | NUR ---
AWAKE ALERT UNCOOPERATIVE AT TIMES TOOK ABOUT 3 TIMES FOR PATIENT TO BE CONVINCED TO HAVE HIS BLOOD DRAWN CONTINUED TO CURSE YELL THROUGHOUT THE BLOOD DRAW REMAIN ON VANCOMICIN ORDERED WITH NO ADVERSE OR ALLERGIC REACTIONS AT THIS TIME.REMAIN ON ONE ON ONE SITTER FOR SAFETY PATIENT IS AT RISKS FOR FALLS AND INJURIES RELATED TO POOR SAFETY AWARENESS WILL CONTINUE TO OBSERVE PATIENT.
[2018-05-13 09:32] LABS: BASOPHILS % (AUTO) 0.6 % (0.0-2.0); EOSINOPHILS # (AUTO) 0.2 K/uL (0.0-0.7); EOSINOPHILS % (AUTO) 2.3 % (0.0-7.0); HEMATOCRIT 34.2 % (36.7-47.1); HEMOGLOBIN 11.9 g/dL (12.5-16.3); LYMPHOCYTES # (AUTO) 1.7 K/uL (20.0-40.0); LYMPHOCYTES % (AUTO) 22.4 % (20.5-51.5); MEAN CORPUSCULAR HEMOGLOBIN 30.9 uug (23.8-33.4); MEAN CORPUSCULAR HGB CONC 35 g/dL (32.5-36.3); MEAN CORPUSCULAR VOLUME 88.7 fL (73.0-96.2); MONOCYTES # (AUTO) 0.9 K/uL (2.0-10.0); MONOCYTES % (AUTO) 11.5 % (0.0-11.0); NEUTROPHILS # (AUTO) 4.8 K/uL (1.8-8.9); NEUTROPHILS % (AUTO) 63.2 % (38.5-71.5); PLATELET COUNT (AUTO) 713 K/uL (152-348); RED BLOOD CELL COUNT(AUTO) 3.85 MIL/uL (4.06-5.63); WHITE BLOOD COUNT (AUTO) 7.5 K/uL (3.6-10.2)
[2018-05-13] MEDS: ENOXAPARIN SODIUM 40 MG/0.4 ML DISP.SYRIN SQ SCH (09:33)
[2018-05-13 09:42] LABS: CARBON DIOXIDE 27 mmol/L (21-32); CHLORIDE 101 mmol/L (98-107); CREATININE 0.6 mg/dL (0.6-1.3); GLUCOSE 152 mg/dL (74-106); MAGNESIUM 1.8 mg/dL (1.8-2.4); PHOSPHOROUS 3.5 mg/dL (2.5-4.9); POTASSIUM 3.6 mmol/L (3.5-5.1); UREA NITROGEN, BLOOD 11 mg/dL (7-18)
[2018-05-13] MEDS: DIVALPROEX 250 MG TABLET.DR PO SCH ×3 (11:43→16:22)
--- NOTE | 2018-05-13 12:00 | NUR ---
PATIENT SEEN AND EXAMINED BY DR LUNDBERG WITH NEW ORDERS AND NOTED
[2018-05-13 12:12] VITALS: BP 109/62
[2018-05-13 15:08] VITALS: BP 100/78
--- NOTE | 2018-05-13 17:42 | NUR ---
DISCHARGE PLANNING PATIENT WILL BE DISCHARGED TOMORROW TO A [facility] WHERE HE WILL CONTINUE WITH INTRAVENOUS ANTIBIOTICS FOR 6 WEEKS PER THE INFECTIOUS DISEASE DOCTOR.PATIENT HAS A ORDER FOR A PICC LINE IN ORDER FOR THE MARKETING STRATEGY MANAGER ANTIBIOTICS SO THE ENGINE TESTER CALLED AND NOTIFIED STATED WILL ORDER FOR THE PICC LINE RN TO COME TOMORROW MORNING TO INSERT THE PICC LINE ORDERED WILL OBTAINED CONSCENT.
--- NOTE | 2018-05-13 17:59 | NUR ---
CALLED THE ACTIVITIES LEADER AND NOTIFIED HER THAT PATIENT IS LEGALLY BLIND AND IS UNABLE TO SIGN CONSCENT FOR THE PICC LINE PLACEMENT AND HAS NO FAMILY.
[2018-05-13 19:00] VITALS: BP 101/63
--- NOTE | 2018-05-13 19:30 | NUR ---
Received patient from day shift RN. Patient in stable condition at start of shift. No acute distress noted. Vital signs within range. 1:1 sitter at the bedside for safety. Upon assessment, patient is verbally abusive, yelling & shouting with fowl language. A/Ox3-4 & legally blind. Noted with left forearm 20G IV site which is locked, flushing well. Patient has a left hip deep/small wound which is currently covered with mepilex. On ATB therapy for osteomyelitis of the left hip. Room checked for safety at start of shift. Will continue to monitor through shift.
--- NOTE | 2018-05-13 20:05 | NUR ---
Per Austin, pharmacist: Ok to give Vanco dose this evening even though there is no baseline trough for patient. Austin to follow up with day shift pharmacist for next dose.
--- NOTE | 2018-05-14 06:17 | NUR ---
Patient slept intermittently through the shift. Continues to be agitated & noncompliant. 1:1 sitter at the bedside for safety. Safety measures implemented. All needs attended to. Medications administered per MD order. Contact isolation maintained. Will endorse to day shift nurse.
--- NOTE | 2018-05-14 07:49 | NUR ---
RECEIVED PATIENT UP ON THE W/CHAIR GETTING ANGRY OVER COFFEE WANTS COFFEE SOFÍA AND WHEN TOLD TO WAIT FOR A MINUTE YELLED AT HIS SITTER USING FOWL LANGUAGES HE CONTINUES TO REQUIRE A SITTER FOR SAFETY PATIENT HAS POOR SAFETY AWARENESS AND AT RISKS FOR FALLS.PATIENT IS FOR PICC LINE INSERTION TODAY AWAITING FOR THE DOCTOR TO DETERMINE WHO WILL SIGN THE CONSCENT.
[2018-05-14 07:54] VITALS: BP 129/58
[2018-05-14] MEDS: MAGNESIUM OXIDE 400 MG TABLET PO SCH (08:24)
[2018-05-14] MEDS: CYANOCOBALAMIN 100 MCG TABLET PO SCH (08:24)
[2018-05-14] MEDS: DIVALPROEX 250 MG TABLET.DR PO SCH ×3 (08:24→16:09)
[2018-05-14] MEDS: ZINC SULFATE 220 MG CAPSULE PO SCH (08:24)
[2018-05-14] MEDS: FOLIC ACID 1 MG TABLET PO SCH (08:24)
[2018-05-14] MEDS: THIAMINE HCL 100 MG TABLET PO SCH (08:24)
[2018-05-14] MEDS: MULTIVIT, IRON, MIN NO. 8, FA TABLET PO SCH (08:24)
[2018-05-14] MEDS: OLANZAPINE 2.5 MG TABLET PO SCH ×3 (08:24→16:07)
[2018-05-14] MEDS: ASCORBIC ACID 500 MG TABLET PO SCH (08:24)
[2018-05-14] MEDS: DOCUSATE SODIUM 100 MG CAPSULE PO SCH ×2 (08:24→16:07)
[2018-05-14] MEDS: hydrOXYzine HCL 10 MG TABLET PO SCH ×2 (08:25→16:08)
[2018-05-14] MEDS: RIFAMPIN 300 MG CAPSULE PO SCH (08:25)
[2018-05-14] MEDS: VANCOMYCIN IV 750 MG in IV DEXTROSE 5% 250 ML IV SCH (08:42)
[2018-05-14] MEDS: ENOXAPARIN SODIUM 40 MG/0.4 ML DISP.SYRIN SQ SCH (08:44)
--- NOTE | 2018-05-14 08:56 | NUR ---
DISCHARGE PLANNING STILL AWAITING FOR THE DECISION ON PICC LINE PLACEMENT AND WHO WILL CONSCENT FOR THE PATIENT.PER THE SENIOR MECHANICAL PROJECT ENGINEER PATIENT WILL BE PICKED UP BY [facility] ABOUT 1500 TODAY.
[2018-05-14] MEDS ORDERED: OLAN2.5T3 PO (09:11)
[2018-05-14] MEDS ORDERED: ASCO500T9 PO (09:11)
[2018-05-14] MEDS ORDERED: DIVA250T4 PO (09:11)
[2018-05-14] MEDS ORDERED: ZINC220C8 PO (09:11)
[2018-05-14] MEDS ORDERED: RIFA300C2 PO (09:11)
--- NOTE | 2018-05-14 10:06 | NUR ---
Clinical Pharmacy Note: Vancomycin Pharmacy to Dose Subjective: To continue vancomycin in this 62 y/o male for indication of osteomyelitis Objective: weight 50 kg height 170cm BUN 11 (05/13) Scr 0.6 (05/13) Wbc 7.5 (05/13) temp 98.1 trough pending tomorrow @ 0030- Patient refused lab draw Assessment/Plan Will continue same dose of vancomycin 750mg IVPB q12hr for today. 3rd dose due today 0900. Trough ordered before 5th scheduled dose ( will try to schedule trough in am, so patient does not refuse lab draw- ordered for 05/15 at 0830- if patient refuses again, will inform MD). Will review the level in am & adjust the dose if needed. Will follow.
[2018-05-14 12:00] VITALS: BP 107/58
--- NOTE | 2018-05-14 12:03 | NUR ---
DR OBDULIA SYKES HERE AND ATTEMPTED TO PLACE A PICC LINE ORDERED PATIENT REFUSED WAS VERBALLY ABUSIVE SHOUTING AND REFUSED THE PICC LINE INSERTION.
--- NOTE | 2018-05-14 13:10 | NUR ---
CALLED [facility] AND REPORT GIVEN TO GENE CARBAJAL FOR CONTINUING CARE AWARE THAT PATIENT REFUSED INSERTION OF PICC LINE AND WILL CONTINUE ON IV ANTIBIOTICS FOR 6 WEEKS STARTING 05/10/2018 AND SHE EXPRESSED UNDERSTANDING.
[2018-05-14 16:00] VITALS: BP 106/55
--- NOTE | 2018-05-14 17:44 | NUR ---
STILL WAITING TO BE PICKED UP BY THE LISA JEFFRIES[facility] AND PER THE PENOLOGY PROFESSOR THE CLINICAL PROJECT ASSISTANT IS ON THE WAY IN TRAFFIC.PATIENT NOTIFIED BUT DID NOT CARE ONE WAY OR THE OTHER.
--- NOTE | 2018-05-14 19:18 | NUR ---
PATIENT DISCHARGED PICKED UP BY THE [facility]ISA [facility] GELATIN POWDER MIXER BY W/CHAIR IN SATISFACTORY CONDITION WITH ALL OF HIS PERSONAL BELONGINGS AND DISCHARGE PAPER WORK.
== END 2018-05-14 19:18 | DRG 559 ==
LOC: MED 22:16
PROVIDERS: ADMIT Nurse Practitioner Acute Care; ATTEND Registered Nurse
DX: T84.52XA Infection and inflammatory reaction due to internal left hip prosthesis, initial encounter (principal); G93.41 Metabolic encephalopathy; M86.152 Other acute osteomyelitis, left femur; E44.1 Mild protein-calorie malnutrition; Z68.1 Body mass index [BMI] 19.9 or less, adult; E87.1 Hypo-osmolality and hyponatremia; E11.69 Type 2 diabetes mellitus with other specified complication; B95.62 Methicillin resistant Staphylococcus aureus infection as the cause of diseases classified elsewhere; K40.90 Unilateral inguinal hernia, without obstruction or gangrene, not specified as recurrent; D63.8 Anemia in other chronic diseases classified elsewhere; E83.42 Hypomagnesemia; D47.3 Essential (hemorrhagic) thrombocythemia; S71.001D Unspecified open wound, right hip, subsequent encounter; X58.XXXD Exposure to other specified factors, subsequent encounter; F17.210 Nicotine dependence, cigarettes, uncomplicated; H54.8 Legal blindness, as defined in USA; I70.0 Atherosclerosis of aorta; Z91.19 Patient's noncompliance with other medical treatment and regimen; F25.0 Schizoaffective disorder, bipolar type; F03.90 Unspecified dementia, unspecified severity, without behavioral disturbance, psychotic disturbance, mood disturbance, and anxiety
CPT/HCPCS: 36415; 83735; 84100; 85025; A4663; C1751; G0378; J1650; J3370; J3490; J7050; J7060